=== PATIENT | male | born 1950 | race Caucasian/White ===

== ENCOUNTER 2019-04-24 08:28 | Inpatient (IN) | payer OTHER ==
[2019-04-18 15:47] LABS: BASOPHILS % (AUTO) 0.8 % (0-1); EOSINOPHILS % (AUTO) 0.9 % (0-6); LYMPHOCYTES # (AUTO) 1.4 X10'3 (1.1-4.8); LYMPHOCYTES % (AUTO) 28.1 % (21-51); MEAN CORPUSCULAR HEMOGLOBIN 32.1 PG (27.0-31.0); MEAN CORPUSCULAR HGB CONC 33.4 g/dL (33.0-36.5); MEAN CORPUSCULAR VOLUME 96.2 FL (78-98); MEAN PLATELET VOLUME 9.3 FL (7.4-10.4); MONOCYTES # (AUTO) 0.6 X10'3 (0-0.9); MONOCYTES % (AUTO) 10.7 % (2-12); NEUTROPHILS # (AUTO) 3.1 X10'3 (1.8-7.7); NEUTROPHILS % (AUTO) 59.5 % (42-75); PRE OP HEMATOCRIT 47.9 % (42.0-52.0); PRE OP PLATELET COUNT 210 X10'3 (140-440); RED BLOOD COUNT 4.98 X10'6 (4.70-6.10); RED CELL DISTRIBUTION WIDTH 13.9 % (11.5-14.5)
[2019-04-18 15:59] LABS: ALBUMIN 4.1 G/DL (3.4-5.0); ALBUMIN/GLOBULIN RATIO 1.2 (1.1-1.5); ALKALINE PHOSPHATASE 84 IU/L (46-116); BLOOD UREA NITROGEN 21 MG/DL (7-18); BUN/CREATININE RATIO 26.9 (5.4-32.0); CALCIUM 8.8 MG/DL (8.5-10.1); CHLORIDE 110 MMOL/L (99-107); CREATININE 0.78 MG/DL (0.60-1.10); PRE OP ALT 26 U/L (30-65); PRE OP ANION GAP 9 (8-16); PRE OP AST 20 U/L (10-37); PRE OP BILIRUB, TOTAL 0.4 MG/DL (0.0-1.0); PRE OP GLUCOSE 92 MG/DL (70-104); PRE OP INR 1.1 INR; PRE OP POTASSIUM 4.1 MMOL/L (3.4-5.1); PRE OP PROTIME 11.5 SECONDS (9.0-12.0); PRE OP SODIUM 146 MMOL/L (135-145); TOTAL CARBON DIOXIDE 26.8 MMOL/L (24-32); TOTAL PROTEIN 7.5 G/DL (6.4-8.2); eGFR > 90 ML/MIN
[2019-04-24] VITALS (15 sets, daily range): BP systolic 112–135; BP diastolic 55–86
[~2019-04-24] VITALS: Ht 172.7 cm; Wt 70.0 kg
[~2019-04-24 08:28] MED LIST: NO HOME MEDS; meperidine/PF 25mg/ml syringe IV PRN; morphine 4 MG/ML inj SYRINge IV PRN; ondansetron/PF 4mg/2ml inj IV PRN; proCHLORperazine 10 MG/2 ml inj IV PRN; ringers solution, lacted 1,000 ML IV SCH
[2019-04-24] MEDS ORDERED: cefazolin/dext.iso 2gm/100 ML IV ONE (08:45)
[2019-04-24] MEDS ORDERED: famotidine 20mg tablet PO ONE (08:45)
[2019-04-24] MEDS ORDERED: ringers solution, lacted 1,000 ML IV SCH (08:45)
[2019-04-24] MEDS ORDERED: vancomycin inj 1,500 MG in normal saline 300ml IV soln IV ONE (08:45)
[2019-04-24] MEDS ORDERED: tranexamic acid inj. 700 MG in normal saline 100ml IV soln 100 ML IV ONE ×5 (10:45→17:15)
[2019-04-24] MEDS ORDERED: MIDAZolam 5mg/5ml vial ONE (11:03)
[2019-04-24] MEDS ORDERED: propofol inj 20 ML IV ONE (11:03)
[2019-04-24] MEDS ORDERED: fentaNYL/PF 50MCG/1 ML 2ML syringe ONE (11:03)
[2019-04-24] MEDS ORDERED: LIDOcaine 1%/PF 5ML 10 MG/ML VIAL ONE (11:15)
[2019-04-24] MEDS ORDERED: sevoflurane 250ml liquid IH ONE (11:15)
[2019-04-24] MEDS ORDERED: dexamethasone sod phosphate 10mg/ml inj ONE (11:15)
[2019-04-24] MEDS ORDERED: ondansetron/PF 4mg/2ml inj ONE (11:15)
[2019-04-24] MEDS ORDERED: ROPIVAcaine 0.2%/PF PAIN PUMP 400 ML IJ SCH (12:20)
[2019-04-24] MEDS ORDERED: ROPIVAcaine 0.5% (5mg/ml) 30ml vial ONE (12:46)
[2019-04-24] MEDS ORDERED: ketorolac trometh. 30mg/ml inj. ONE ×2 (12:46→13:56)
--- NOTE | 2019-04-24 14:05 | NUR ---
Received from OR via ORTHO BED, accompanied by Anesthesiologist DR. VALLE and report given by Anesthesiolgist. PT ARRIVED AWAKE BUT SLEEPY. 10L O2 VIA MASK IN PLACE. DRESSING CDI. ACEVEDO WITH GOOD CSM. PULSES AND BAR FINISH OPERATOR WNL. SCDS IN PLACE
[2019-04-24] MEDS ORDERED: ondansetron/PF 4mg/2ml inj IV PRN (14:15)
[2019-04-24] MEDS ORDERED: oxyCODONE IR 5mg (immed. release) tablet PO PRN ×2 (14:15)
[2019-04-24] MEDS ORDERED: acetaminophen 325mg tablet PO PRN (14:15)
[2019-04-24] MEDS ORDERED: HYDROmorphone inj. 0.5 MG/0.5 ML DISP.SYRIN IV PRN (14:15)
[2019-04-24] MEDS ORDERED: bisacodyl 10mg suppository rectal RC PRN (14:15)
[2019-04-24] MEDS ORDERED: magnesium hydroxide 30ml (MOM) UD suspension PO PRN (14:15)
[2019-04-24] MEDS ORDERED: HYDROmorphone 1 mg/ml syringe IV PRN (14:15)
[2019-04-24] MEDS ORDERED: diphenhydrAMINE 25mg capsule PO PRN ×2 (14:15)
--- NOTE | 2019-04-24 14:55 | NUR ---
Report called to receiving nurse SKYLAR PAUL. Transferred via ORTHO BED TO ROOM 4012A WITH BAG X1 OF Belongings AT END OF BED. Special Issues communicated to receiving nurse. VSS ON RA
[2019-04-24] MEDS: potassium cl 20mEq in 1/2 NS 1,000 ML IV SCH (17:06)
[2019-04-24] MEDS: ceFAZolin 1GM/D5W- ADD-VANTAGE 50 ML IV SCH ×2 (17:06→23:43)
--- NOTE | 2019-04-24 18:35 | NUR ---
Problems reprioritized. Patient report given, questions answered & plan of care reviewed with Corinna PAUL.
--- NOTE | 2019-04-24 18:43 | NUR ---
Patient in room ORTHO 4012. I have received report from BEVERLY CHENG and had the opportunity to ask questions and assume patient care.
[2019-04-24] MEDS: acetaminophen 325mg tablet PO SCH (20:00)
[2019-04-24] MEDS ORDERED: vancomycin/NS 1 GM ADD-VANTAGE 250 ML IV SCH (20:00)
[2019-04-24] MEDS ORDERED: sennosides 8.6mg tablet PO SCH (21:00)
[2019-04-25] MEDS: acetaminophen 325mg tablet PO SCH (01:17)
[2019-04-25 02:14] VITALS: BP 108/62
[2019-04-25] MEDS: potassium cl 20mEq in 1/2 NS 1,000 ML IV SCH (04:52)
[2019-04-25 05:00] VITALS: BP 115/44
--- NOTE | 2019-04-25 06:05 | NUR ---
Patient in room ORTHO 4012. I have received report from BEVERLY KUMAR and had the opportunity to ask questions and assume patient care. Addendum: 04/25/19 at 0608 by Corinna López RN Problems reprioritized. Patient report given, questions answered & plan of care reviewed with BEVERLY KUMAR.
[2019-04-25 06:10] LABS: BASOPHILS % (AUTO) 0.1 % (0-1); EOSINOPHILS % (AUTO) 0 % (0-6); HEMATOCRIT 41.3 % (42.0-52.0); HEMOGLOBIN 13.7 g/dl (14.0-17.9); LYMPHOCYTES # (AUTO) 1.3 X10'3 (1.1-4.8); LYMPHOCYTES % (AUTO) 12.3 % (21-51); MEAN CORPUSCULAR HGB CONC 33.1 g/dL (33.0-36.5); MEAN CORPUSCULAR VOLUME 96.6 FL (78-98); MEAN PLATELET VOLUME 9.9 FL (7.4-10.4); MONOCYTES # (AUTO) 0.9 X10'3 (0-0.9); MONOCYTES % (AUTO) 9.2 % (2-12); NEUTROPHILS % (AUTO) 78.4 % (42-75); PLATELET COUNT 186 X10'3 (140-440); RED BLOOD COUNT 4.28 X10'6 (4.70-6.10); RED CELL DISTRIBUTION WIDTH 13.5 % (11.5-14.5); WHITE BLOOD COUNT 10.3 X10'3 (4.5-11.0)
[2019-04-25 06:27] LABS: ANION GAP 11 (8-16); CHLORIDE 110 MMOL/L (99-107); POTASSIUM 4.2 MMOL/L (3.5-5.1); SODIUM 142 MMOL/L (135-145); TOTAL CARBON DIOXIDE 21.3 MMOL/L (24-32)
--- NOTE | 2019-04-25 06:30 | NUR ---
Patient in room ORTHO 4012. I have received report from BEVERLY Weinstein and had the opportunity to ask questions and assume patient care.
[2019-04-25] MEDS ORDERED: aspirin 325mg tablet PO SCH (08:30)
--- NOTE | 2019-04-25 10:15 | NUR ---
Received discharge orders from [facility]. IV dc'd from [facility] with cannula intact. No redness/swelling at insertion site. Bandaid applied over IV entry site. Reviewed discharge instructions with the pt. Gave pt 2 [place] Dressings per Latonia Mcpherson's discharge note. Instruction given regarding Ropivicaine. Dc'd to private vehicle.
[2019-04-25] MEDS ORDERED: celeCOXIB 100mg capsule PO SCH (20:00)
[2019-04-26] MEDS ORDERED: acetaminophen 325mg tablet PO PRN (14:15)
== END 2019-04-25 10:10 | disposition home or self-care (01) | DRG 483 ==
LOC: PAS IN 08:28 → EDSTATUS 12:00 → ORTHO 4S 15:00
PROVIDERS: ADMIT Orthopaedic Surgery; ATTEND Orthopaedic Surgery
PROC: 3E0T3BZ Introduction of Anesthetic Agent into Peripheral Nerves and Plexi, Percutaneous Approach (ICD-10-PCS; 2019-04-24)
PROC: 0LS30ZZ Reposition Right Upper Arm Tendon, Open Approach (ICD-10-PCS; 2019-04-24)
PROC: 0RRJ0JZ Replacement of Right Shoulder Joint with Synthetic Substitute, Open Approach (ICD-10-PCS; principal; 2019-04-24 11:15)
DX: M19.011 Primary osteoarthritis, right shoulder (principal); D62 Acute posthemorrhagic anemia; G89.29 Other chronic pain; M65.811 Other synovitis and tenosynovitis, right shoulder; Z88.8 Allergy status to other drugs, medicaments and biological substances; Z72.89 Other problems related to lifestyle
CPT/HCPCS: 36415; 80051; 80053; 82948; 85025; 85610; 85730; 87081; 97161; 97530; A4565; A4618; A7000; C1713; C1776; G0378; J0690; J1100; J1885; J2250; J2405; J2704; J2795; J3010; J3370; J3480; J7120; Q0163